=== PATIENT | male | born 1980 | race Caucasian/White ===

== ENCOUNTER 2022-11-25 01:41 | Day surgery (SDC) | payer OTHER, SELFPAY ==
[2022-11-11 13:44] VITALS: BMI 37.3
[2022-11-25 06:53] VITALS: BP 132/91; PULSE 64; RESP 20; TEMP 36.6; O2SAT 100; BMI 37.8
[2022-11-25] MEDS: LACTATED RINGERS 1,000 ML 150 ML IV CONT (07:07)
--- NOTE | 2022-11-25 07:29 | PM.HPGS ---
History of Present Illness History of Present Illness Consent: Risks, benefits, and alternatives have been discussed and questions answered. Patient agrees to proceed with procedure. Chief complaint: family hx colon ca, hx colon polyps Narrative: Walt Freitas is a 42 year old male Presents for screening colonoscopy. Patient's sister was found to have colon cancer. Patient has had 2 previous colonoscopies elsewhere. He was found to have colon polyps on 1 of those previous exams. Patient reports his current weight appetite and bowel movements are normal. Patient denies abdominal pain. He has had no bleeding. Family history is noncontributory. Review of Systems Review of Systems: Review of systems is noncontributory. [facility] Social History Social History Smoking packs per day: 1 Smoking cigarettes per day: 20.0 Years smoked: 10 Smoking pack-years: 10.00 Smoking status: Former smoker Tobacco type: cigarettes Spiritual care concerns: No Meds Home Medications and Allergies Home Medications Medication Instructions Recorded Confirmed Type cholecalciferol (vitamin D3) 50 50 mcg PO DAILY 11/11/22 11/11/22 History mcg (2,000 unit) tablet citalopram 40 mg tablet 40 mg PO DAILY 11/11/22 11/11/22 History gabapentin 300 mg capsule 300 mg PO TID 11/11/22 11/11/22 History hydrochlorothiazide 25 mg tablet 25 mg PO DAILY 11/11/22 11/11/22 History Allergies Allergy/AdvReac Type Severity Reaction Status Date / Time No Known Allergies Allergy Verified 11/11/22 13:42 Vital Signs Vital Signs - 24 hr 11/25/22 06:53 Temperature 97.8 F Pulse Rate 64 Respiratory Rate 20 Blood Pressure 132/91 H Pulse Oximetry 100 Oxygen Delivery Room Air Exam Narrative: physical exam reveals patient to be of alert. Vital signs stable. HEENT exam is unremarkable. Patient is anicteric. Lungs are clear to auscultation and percussion. Heart is without murmur or extra sounds. Abdomen bowel sounds are present soft nontender with no organomegaly. Digital external rectal exam is normal. Assessment and Plan Assessment and plan (1) Encounter for screening colonoscopy: Code(s): Z12.11 - Encounter for screening for malignant neoplasm of colon Status: Acute Assessment and Plan: Patient presents for screening colonoscopy. He does have a prior history of colon polyps. Further recommendations may be given after endoscopy. Check up follow-up at 5 year intervals is advised. (2) Family hx of colon cancer: Code(s): Z80.0 - Family history of malignant neoplasm of digestive organs Status: Acute Assessment and Plan: Patient's sister was diagnosed with colon cancer. For this reason surveillance colonoscopy at 5 year intervals advised.
--- NOTE | 2022-11-25 07:30 | WPDANESEPPF ---
Anes - Initial Pre Proc Eval Procedure: Operation Date: 11/25/22 08:00 Proposed Procedures p Screening Colonoscopy - Arturo Mcginnis MD Date/Time: 11/25/22 07:30 Surgeon: Arturo Mcginnis MD Pre Op Diagnosis: family hx colon ca, hx colon polyps Patient Data Age: 42 Gender: M Height: 1.78 m Weight: 119.5 kg Last Vital Signs Temp 97.8 F 11/25/22 06:53 Pulse 64 11/25/22 06:53 Resp 20 11/25/22 06:53 BP 132/91 H 11/25/22 06:53 Pulse Ox 100 11/25/22 06:53 O2 Del Method Room Air 11/25/22 06:53 Allergies Allergy/AdvReac Type Severity Reaction Status Date / Time No Known Allergies Allergy Verified 11/11/22 13:42 Home Medications Medication Instructions Recorded Confirmed Type cholecalciferol (vitamin D3) 50 50 mcg PO DAILY 11/11/22 11/11/22 History mcg (2,000 unit) tablet citalopram 40 mg tablet 40 mg PO DAILY 11/11/22 11/11/22 History gabapentin 300 mg capsule 300 mg PO TID 11/11/22 11/11/22 History hydrochlorothiazide 25 mg tablet 25 mg PO DAILY 11/11/22 11/11/22 History Patient hx anesthesia problems: none Family hx anesthesia problems: none Results Review: All pre-operative results and documents have been reviewed as part of the pre-operative evaluation. PENDING SALE TO [facility] Social History Social History Smoking packs per day: 1 Smoking cigarettes per day: 20.0 Years smoked: 10 Smoking pack-years: 10.00 Smoking status: Former smoker Tobacco type: cigarettes Spiritual care concerns: No Anes - Eval Final PreProcedure Day of Procedure 11/25/22 07:30 Patient weight: obese Heart: regular rate and rhythm Lungs: clear to auscultation Airway: Mallampati scale class II Neurological: alert and oriented Last oral intake: >/= 8 hours ASA classification: III Emergent: no Anesthetic plan: proceed Anesthesia type and monitoring: general GIVS and standard monitoring Results Review: All pre-operative results and documents have been reviewed as part of the pre-operative evaluation. Informed Consent: The patient's anesthetic plan and its attendant risks and benefits were discussed with the patient/family/POA. Questions were solicited and answers provided to the satisfaction of the patient/family/POA.
[2022-11-25 08:27] VITALS: BP 119/73; PULSE 66; RESP 17; O2SAT 100
[2022-11-25 08:37] VITALS: BP 123/73; PULSE 67; RESP 16; O2SAT 100
[2022-11-25 08:47] VITALS: BP 131/87; PULSE 70; RESP 16; O2SAT 100
== END 2022-11-25 08:59 | disposition home or self-care (01) ==
PROVIDERS: PCP Internal Medicine Infectious Disease; Visit Provider Internal Medicine Gastroenterology
PROC: 0DJD8ZZ Inspection of Lower Intestinal Tract, Via Natural or Artificial Opening Endoscopic (ICD-10-PCS; CPT 45378; principal; 2022-11-25 08:00)
DX: Z12.11 Encounter for screening for malignant neoplasm of colon (principal); K64.8 Other hemorrhoids; Z86.010 Personal history of colon polyps; Z80.0 Family history of malignant neoplasm of digestive organs; Z87.891 Personal history of nicotine dependence; E66.9 Obesity, unspecified; Z68.37 Body mass index [BMI] 37.0-37.9, adult
CPT/HCPCS: 45378; J2704; J7120

== ENCOUNTER 2024-12-05 10:14 | Outpatient (CLI) | payer OTHER, SELFPAY ==
--- OUTSIDE RECORDS SUMMARY | 2024-12-05 11:06 | XMS_ITS | Encounter Summary ---
Author Organization [facility] Address [address] [place] [address] Care Team Providers Care Nicking Machine Operator Name Role Phone Boni Tripathi MD Primary Care Provider Reason for Visit * Reason Comments MEDICATION REFILL Encounter Details Date Type Department Care Team (Late st Contact Info) Description 05/08/2024 Refill [facility] [address] [place] [address] Yandel Hampton MD [address] [place] [address] MEDICATION REFILL Social History Tobacco Use Types Packs/Day Years Used Date Smoking Tobacco: Former Cigarettes Q uit: 11/09/2015 Smokeless Tobacco: Never Alcohol Use Standard Drinks/Week Comments No 0 (1 standard drink = 0.6 oz pure alcohol) quit 8 months ago as of 06/28/16 AUDIT-C Answer Date Recorded Q1: How often do you have a drink containing alcohol? Never 04/24/2024 Q2: How many drinks containi ng alcohol do you have on a typical day when you are drinking? Patient does not drink Q3: How often do you have si x or more drinks on one occasion? Never 04/24/2024 Overall Financial Resource Strain (CARDIA) Answe r Date Recorded How hard is it for you to pa y for the very basics like food, housing, medical care, and heating? Not hard at all 04/24/2024 [facility] [place] [facility] - Occupational Stress Questionnaire Answer Date Recorded Do you feel stress - tense, restless, nervous, or anxious, or unable to sleep at night because your mind is troubled all the time - these days? Not at all 04/24/2024 Hunger Vital Sign Answer Date Recorded Within the past 12 months, y ou worried that your food would run out before you got the money to buy more. Never true 04/24/20 24 Within the past 12 months, t he food you bought just didn't last and you didn't have money to get more. Never true 04/24/2024 PRAPARE - Transportation Answer Date Re corded In the past 12 months, has l ack of transportation kept you from medical appointments or from getting medications? No 02/2024 In the past 12 months, has l ack of transportation kept you from meetings, work, or from getting things needed for daily living? No 04/24/2024 Housing Stability Vital Sign Answer Mikey e Recorded In the last 12 months, was t here a time when you were not able to pay the mortgage or rent on time? No 04/24/2024 In the last 12 months, how many places have you lived? 1 04/24/2024 In the last 12 months, was t here a time when you did not have a steady place to sleep or slept in a senior care (including now)? No 04/24/2024 Sex and Gender Information Value Date Recorded Sex Assigned at Not on file Legal Sex Male 5:37 AM [employer] Gender Identity Not on file Sexual Orientation Not on file documented as of this encounter Functional Status * Is person deaf or have serious hearing difficulty? Answer Date of Assessment Author No 04/24/2024 11:06 PM Quiana Vaz RN * Is person blind or have serious difficulty seeing? Answer Date of Assessment Author No 04/24/2024 11:06 PM Quiana Vaz RN * Does person have serious difficulty walking/climbing stairs? Answer Date of Assessment Author No 04/24/2024 11:06 PM Quiana Vaz RN * Does person have difficulty dressing/bathing? Answer Date of Assessment Author No 04/24/2024 11:06 PM Quiana Vaz RN * Does person have difficulty doing errands alone? Answer Date of Assessment Author No 04/24/2024 11:06 PM CDT Quiana Torres RN documented as of this encounter Mental Status * Does person have difficulty concentrating/remembering/making decisions? Answer Entry Date Author No 04/24/2024 11:06 PM CDT Quiana Torres RN documented in this encounter Plan of Treatment Upcoming Encounters Date Type Department Care Team (Late st Contact Info) Description 12/20/2024 1:30 PM CDT Appointment [facility] [address] [place] [phone] 01/03/2025 1:30 PM CDT Appointment [facility] [address] [place] [phone] 01/30/2025 12:30 PM CDT Appointment [facility] [address] [place] [address], [address] [place] [address] 01/30/2025 1:00 PM CDT Office Visit [facility] - Hematology/Oncology [address] [place] [phone] [place] [address] [place] [phone] documented as of this encounter Goals Goal Patient Goal Type Associated Problems Recent Progress Patient-Stated? Author Improve Home Support System General On track(03/14/20 12:02 PM CDT) No [place] RN documented as of this encounter Visit Diagnoses Diagnosis Abdominal pain, left lower quadrant Intra-abdominal infection Unspecified infectious and parasitic diseases documented in this encounter Additional Health Concerns Infection Onset Date Last Indicated Resolved Time ESBL GNR 04/21/2024 04/21/2024 MDRO 04/21/2024 04/21/2024 documented as of this encounter Care Teams Nicking Machine Operator Relationship Specialty Start Date End Date Boni Tripathi MD [address] [place], [place] [id number] PCP - General Internal Medicine 03/29/16 documented as of this encounter
--- OUTSIDE RECORDS SUMMARY | 2024-12-05 11:06 | XMS_ITS | CONTINUITY OF CARE DOCUMENT ---
Author Name hugo arias Address Unknown Organization [facility] Address [address] [facility] [address] [place] [address] Phone [phone] Care Team Providers Care Proteomics Scientist Name Role Phone Toshia Pacheco MD Unavailable RICARDO FLEMING MD Unavailable [phone] RICARDO FLEMING MD Unavailable [phone] PROBLEMS Condition Status Date Provider Notes HTN active Toshia Pacheco MD Morbid obesity active Toshia Pacheco MD 52. 37 BMI Chest pain-type to be determined active Demetra Pacheco MD Palpitations active Toshia Pacheco MD Tobacco use, quit active Toshia Pacheco MD Cough active Toshia Pacheco MD ENCOUNTERS Date Type Provider Location Encounter Diag nosis - In-person encounter Office Visit Toshia Pacheco MD [facility] Office Cough - In-person encounter Office Visit Toshia Pacheco MD [facility] - In-person encounter Office Visit Toshia Pacheco MD [facility] HTNMorbid obesityChest pain-type to be determinedPalpitationsTobacco use, quit VITAL SIGNS Date Observation Value Provider Body Mass Index (Ratio) 48.64 kg/m2 Jase Pacheco MD blood pressure, diastolic 80 mm[Hg] Min Canas blood pressure, systolic 120 mm[Hg] Cinthya Canas oxygen saturation, oximetry 98 % Asha Canas respiratory rate E&M 16 /min Asha Canas pulse rate 86 /min Asha Canas weight E&M 339 [lb_av] Asha Canas blood pressure, cuff size regular Min Canas height E&M 70 [in_i] Asha Canas blood pressure, diastolic 97 mm[Hg] Sita Sanchez blood pressure, systolic 144 mm[Hg] Bailey Sanchez pulse rate 73 /min Lindsay gambino oxygen saturation, oximetry 96 % Lindsay Sanchez respiratory rate E&M 18 /min Khalif Sanchez Body Mass Index (Ratio) 52.60 kg/m2 Darlin Sanchez weight E&M 366.6 [lb_av] Lindsay chinchillaon blood pressure, diastolic 92 mm[Hg] Amador artichester Julius blood pressure, systolic 147 mm[Hg] Annie Madrid pulse rate 76 /min Roz connelly oxygen saturation, oximetry 98 % Roz Madrid respiratory rate E&M 16 /min Roz lynn Body Mass Index (Ratio) 52.37 kg/m2 Sam Madrid weight E&M 365 [lb_av] Roz raier height E&M 70 [in_i] Roz connelly ALLERGIES No Known Drug Allergies HISTORY OF MEDICATION USE Medication Status Instructions Dates Provider Indications Com ments ROBITUSSIN COUGH+CHEST SHILO DM 5-100 MG/5ML ORAL LIQUID active take 5mL three times daily Toshia Pacheco MD [facility] MELATONIN 5 MG ORAL TABLET active take one pill as needed Roz Madrid ALPRAZOLAM 0.5 MG ORAL TABLET completed take one pill a day - Lindsay Sanchez METOPROLOL SUCCINATE ER 100 MG ORAL TABLET EXTENDED RELEASE 24 HOUR active take one pill twice a day Roz Madrid AMLODIPINE BESYLATE 10 MG ORAL TABLET active ONE TAB. DAILY Debbie Ventimiglia [employer]ILER NICODERM CQ PATCH 24 HOUR active change every 24 hours Roz Madrid SOCIAL HISTORY Date Observation Value Provider smoking status Former smoker Toshia langston MD social history E&M S moking History: P ioana is a former smoker. Toshia Pacheco MD social history reviewed E&M revi ewed - no changes required Toshia Pacheco MD number of grandchildren Toshia Canas alcohol use, average drinks per day social Asha Canas alcohol use yes Asha Floresita number of years as a smoker 10 a Asha Ricciby smoking history, tot al pack/day 1 Asha Stanfield cigarette use yes Asha Stanfield social history reviewed E&M revi ewed - no changes required Toshia Pacheco MD alcohol use, average drinks per day social LindsayGwendolyn Gloriaenson alcohol use yes Lindsay Maravilla nson number of years as a smoker 10 a Lindsay Sanchez smoking history, tot al pack/day 1 Lindsay Gloriaenson cigarette use yes Lindsay Gloria enson smoking status Former smoker Lindsay St wray social history E&M Smoking Histo ry: Jazlyn triplett is a former smoker. Toshia Pacheco MD social history reviewed E&M revi ewed - no changes required Toshia Pacheco MD alcohol use, average drinks per day social Roz Madrid alcohol use yes Roz Pacheco lder number of years as a smoker 10 a Roz Madrid smoking history, tot al pack/day 1 Roz [place] cigarette use yes Roz sams smoking status Former smoker Roz Ryan nfelder FAMILY HISTORY Family Member Condition Father Family History of Di abetes: Father Negative FH of Coron lawrence Artery Disease Mother Negative FH of Coron lawrence Artery Disease INSURANCE PROVIDERS Payer name Policy type / Coverage type Gerhard red alliance party ID [id number] insurance [employer] [id number] TREATMENT PLAN Date Name Performer Cardiology Toshia Owen Cardiology:He manage d to lose weight and has been seen by weight loss clinic. The plans are for him to have bariatric surgery at the end of the year or begining of next year. Toshia Pacheco MD Cardiology:No recurrence. Suki Pacheco MD Cardiology:He has a cough with sputum production. He will take Robitussin 5mL three times daily. Toshia Pacheco MD Cardiology:Blood pre ssure control is satisfactory. Toshia Pacheco MD Cardiology:Minimal s ymptoms. Likely that he is having occasional PAC which he is sensitive to. He will continue on Metoprolol Succinate 100mg twice daily. Toshia Pacheco MD Cardiology Debbie castanon [facility] Cardiology:Had stres s test which was normal and Echo shows EF of 65% H is updated medication list for this problem includes: Metoprolol Succinate Er 100 Mg Oral [id number] (Metoprolol succinate) ..... Take one pill twice a day Amlodipine Besylate 10 Mg Tabs (Amlodipine besylate) ..... One tab. daily Debbie King [facility] Cardiology: H is updated medication list for this problem includes: Metoprolol Succinate Er 100 Mg Oral [id number] (Metoprolol succinate) ..... Take one pill twice a day Amlodipine Besylate 10 Mg Tabs (Amlodipine besylate) ..... One tab. daily Debbie Ventimiglia [employer] Cardiology: H is updated medication list for this problem includes: Metoprolol Succinate Er 100 Mg Oral [id number] (Metoprolol succinate) ..... Take one pill twice a day Amlodipine Besylate 10 Mg Tabs (Amlodipine besylate) ..... One tab. daily Debbie Ventimiglia [employer] Date Name Sleep Study Home STR - Nuclear Complete Echo HISTORY OF PROCEDURES Procedure Date Procedure Name Provider Procedure Notes S tatus SNOMED-CT: 57523111 Physical Exam, Performed: Pulse Exam of Foot Toshia Pacheco MD completed EKG Toshia Pacheco MD complet ed SNOMED-CT: 193771067 254137 Current Medications Documented Toshia Pacheco MD completed SNOMED-CT: 048138265 Smoking Cessation Counseling Toshia Pacheco MD completed SNOMED-CT: 65719789 Physical Exam, Performed: Pulse Exam of Foot Toshia Pacheco MD completed EKG Toshia Pacheco MD complet ed SNOMED-CT: 292524606 082803 Current Medications Documented Toshia Pacheco MD completed Stress EKG Toshia Pacheco MD complet ed Cardiolite, 2 units Toshia Pacheco MD completed SPECT Images Toshia Pacheco MD compl eted SNOMED-CT: 59687462 Physical Exam, Performed: Pulse Exam of Foot Toshia Pacheco MD completed SNOMED-CT: 958660383 Smoking Cessation Counseling Toshia Pacheco MD completed SNOMED-CT: 932916059 632296 Current Medications Documented Toshia Pacheco MD completed EKG Toshia Pacheco MD complet ed
--- OUTSIDE RECORDS SUMMARY | 2024-12-05 11:06 | XMS_ITS | Clinical Summary ---
Author Organization [facility] Address [address] [place] [address] Phone Care Team Providers Care Content Publisher Name Role Phone Boni Tripathi MD Primary Care Provider Allergies No known active allergies Medications traMADol (ULTRAM) 50 mg tablet Take 100 mg by mouth every 6 hours as needed for Pain. Active disulfiram (ANTABUSE) 250 mg Tablet Take 500 mg by mouth daily. Active citalopram (CeleXA) 20 mg tablet Take 20 mg by mouth daily at bedtime. Active multivitamin (DAILY-MANASA) tablet Take 1 Tablet by mouth daily. Active calcium as carbonate (CHILDREN'S PEPTO) 400 mg (160 mg elemental) Tablet, Chewable Take by mouth. Active gabapentin (NEURONTIN) 300 mg capsule Take 300 mg by mouth. Active melatonin 5 mg Tablet, Rapid Dissolve Take 15 mg by mouth. Active Active Problems Problem Noted Date Diagnosed Date Asthma 04/12/2019 Back pain 04/12/2019 L4-L5 disc bulge 04/12/2019 Family history of malignant neoplasm of colon in first degree relative diagnosed when younger than 60 years of age 0904/12/2019 Family history of May syndrome 04/12/2019 Genetic testing 04/12/2019 Morbid obesity due to excess calories 12/07/2018 Family History Medical History Relation Name Comments Diabetes Father Heart Disease Maternal Grandfather Diabetes Maternal Grandmother Diabetes Mother Madeline Heart Disease Mother Madeline High Cholesterol Mother Madeline Cancer Paternal Grandmother Cancer unknown primary Colon Cancer Sister 1 May syndrome P MS 2+ Other Sister 2 Has May syndr ome P MS 2+ Relation Name Status Comments Father Maternal Aunt 1 Maternal Aunt 2 Alive Maternal Aunt 3 Alive Maternal Aunt 4 Alive Maternal Aunt 5 Alive Maternal Aunt 6 Alive Maternal Aunt 7 Alive Maternal Aunt 8 Alive Maternal Grandfather Maternal Grandmother Maternal Uncle 1 Alive Maternal Uncle 2 Alive Maternal Uncle 3 Alive Mother Madeline Alive Paternal Grandfather Paternal Grandmother Sister 1 Alive Sister 2 Alive Social History Tobacco Use Types Packs/Day Years Used Date Smoking Tobacco: Former Cigarettes Q uit: 10/18/2015 Alcohol Use Standard Drinks/Week Comments Not Currently 0 (1 standard drink = 0.6 oz pur e alcohol) Sex and Gender Information Value Date Recorded Sex Assigned at Not on file Legal Sex Male 11:24 AM CDT Gender Identity Not on file Sexual Orientation Not on file Last Filed Vital Signs Vital Sign Reading Time Taken Comments Blood Pressure 124/88 04/12/2019 8:54 AM CDT Pulse 99 04/12/2019 8:54 AM CDT Temperature 37 C (98.6 F) 04/12/2019 8:54 AM CDT Respiratory Rate 16 04/12/2019 8:54 AM CDT Oxygen Saturation - - Inhaled Oxygen Concentration - - Weight 96.2 kg (212 lb) 04/12/2019 8:54 AM CDT Height 175.3 cm (5' 9) 04/12/2019 8:54 AM CDT Body Mass Index 31.31 04/12/2019 8:54 AM CDT Plan of Treatment Health Maintenance Due Date Last Done Comments Pre-Diabetes and Diabetes Screening 1981 DTAP/TDAP/TD VACCINES (1 - Tdap) 02/24/2000 HEPATITIS B VACCINES (1 of 3 - 19+ 3-dose series) 02/24/2000 INFLUENZA VACCINE (#1) 2024 HPV VACCINES Aged Out No longer eligi ble based on patient's age to complete this topic Insurance [employer] BLUE ACCESS/TRUE BLUE PPO Care Teams Content Publisher Relationship Specialty Start Date End Date Boni Tripathi MD [address] [place] [address] PCP - General Internal Medicine 04/12/19
--- OUTSIDE RECORDS SUMMARY | 2024-12-05 11:06 | XMS_ITS | Clinical Summary ---
Author Organization [facility] Address [address] [address] Care Team Providers Care Supervisor Edging Name Role Phone Boni Tripathi MD Primary Care Provider Source Comments [facility],non-owned Affiliates and Associated Physician Practices is amultiple site organization consisting of ambulatory clinics and hospital sitesin [place], [place], [place] and [place]. This disclosure is being madepursuant to the Care Everywhere program and may not contain all information available regarding this patient. Last updated 18.[facility] Allergies Active Allergy Reactions Criticality Noted Date Comments Amoxicillin Urticaria,Itching Medium 08/31/2024 Medications * Be aware that medications may not be up to date on this document. Alwaysverify current medications with the patient. citalopram (CeleXA) 40 MG tabletIndicati ons:Major Depressive Disorder Take 1 (one) tablet by mouth once daily Reasons: Major Depressive Disorder Active acetaminophen (Tylenol) 500 MG tablet Take 2 (two) tablets by mouth 3 times daily as needed for Fever or Pain Maximum allowable Acetaminophen amount = 4 Grams (4000 mg) / 24 hours. 45 tablet 05/03/2024 11:51 AM CDT 05/03/20 24 Active gabapentin (Neurontin) 300 MG capsule Take 1 (one) capsule by mouth 3 times daily as needed 90 capsule 05/03/20 24 Active vitamin D, ergocalciferol , (Drisdol) 1.25 MG (47737 UT) capsule Take 1 (one) capsule by mouth every 7 days 09/13/19 25 Active eszopiclone (Lunesta) 3 MG tablet Take 1 (one) tablet by mouth once 10/09/19 25 Active cloNIDine (Catapres) 0.2 MG tablet Take 1 (one) tablet by mouth at bedtime 09/12/19 25 Active folic acid (Folvite) 1 MG tabletIndicati ons:Other iron deficiency anemia Take 1 (one) tablet by mouth once daily 90 tablet 2 11/20/19 25 Active omeprazole (PriLOSEC) 20 MG capsule Take 1 (one) capsule by mouth once daily 30 capsule 02/12/20 24 024 Discontin ued(Yes Pharm/AVS ) folic acid (Folvite) 1 MG tablet Take 1 (one) tablet by mouth once daily 60 tablet 1 11/03/19 25 025 Discontin ued(Reord er) Active Problems Problem Noted Date Diagnosed Date B12 deficiency 11/02/2024 Iron deficiency anemia 11/02/2024 SBO (small bowel obstruction) 05/15/2024 History of abdominal surgery 05/15/2024 Anasarca 04/26/2024 Abdominal pain, right lower quadrant 04/23/2024 Abdominal pain, left lower quadrant 04/23/2024 LLQ abdominal pain 04/23/2024 LLQ pain 04/23/2024 Intra-abdominal infection 04/23/2024 Hypokalemia 04/18/2024 Leukocytosis, unspecified type 04/18/2024 Duodenal perforation 04/18/2024 Right sided abdominal pain 04/18/2024 Intraabdominal fluid collection 04/18/2024 Abdominal fluid collection 03/30/2024 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 RLQ abdominal pain 03/13/2024 Post-operative pain 03/13/2024 Elevated lipase 03/13/2024 S/P jejunostomy 02/15/2024 S/P gastrostomy 02/15/2024 Leakage from duodenostomy 02/15/2024 Retroperitoneal hematoma 02/15/2024 Abdominal wall hematoma 02/15/2024 Other specified anemias 02/15/2024 Abdominal pain, generalized 02/07/2024 Hemoperitoneum 02/07/2024 Perforated duodenal ulcer 02/04/2024 L4-L5 disc bulge 04/12/2019 Family history of May syndrome 04/12/2019 Family history of malignant neoplasm of colon in first degree relative diagnosed when younger than 60 years of age 0904/12/2019 Asthma 04/12/2019 Morbid obesity due to excess calories 12/07/2018 Lumbar radiculopathy 05/31/2017 Personal history of nicotine dependence 04/30/20 HTN (hypertension) 04/30/2015 Encounters Date Type Department Care Team Description 11/30/2024 10:13 AM CDT - 11/30/2024 11:59 PM CDT Hospital Encounter [facility] [address] [place] [phone] Albino Martinez MD Discharge Disposition: Home or Self Care 11/19/2024 Refill [facility] - Hematology/Oncology [address] [place] [phone] Albino Martinez MD MEDICATION REFILL 11/16/2024 9:36 AM CDT - 11/16/2024 11:59 PM CDT Hospital Encounter [facility] [address] [place] [phone] Albino Martinez MD Hematology Discharge Disposition: Home or Self Care 11/16/2024 Orders Only [facility] [address] [place] [address] Albino Martinez MD 11/13/2024 Telephone [facility] - Hematology/Oncology [address] [place] [phone] Melinda Dumont, BEATA Future Appointment 11/02/2024 12:45 PM CDT - 11/02/2024 11:59 PM CDT Hospital Encounter [facility] [address] [place] [address], [address] [place] [address] Discharge Disposition: Home or Self Care 11/02/2024 11:40 AM CDT Office Visit [facility] - Hematology/Oncology [address] [place] [phone] Albino Martinez MD Other iron deficiency anemia (Primary Dx); Vitamin B12 deficiency; Family history of colon cancer 11/02/2024 Travel 10/10/2024 1:00 PM CDT Office Visit [facility] - Infectious Disease [address] [facility], [facility] [place] [address] Ted Magdaleno MD Abdominal actinomycosis (Primary Dx); Intra-abdominal infection 10/10/2024 Travel from Last 3 Months Immunizations Immunization Administration Dates Next Due COVID PFIZER BIVALENT 12Y+ 30mcg/0.3ML 06/09/2022 Covid Pfizer primary Monoval ent 12+ yr 0.3ml 09/08/2021 Covid Pfizer primary monoval ent 12+ yr 0.3mL Purple cap 03/21/2021,02/28/2021 FLU VACCINE TRI IIV3 SPLIT I M (FLUVIRIN) 05/02/2014 INFLUENZA VACCINE, HIGH-DOSE , TRIV. (FLUZONE HIGH-DOSE TRIVALENT; 65Y+) (HD-IIV3) 05/18/2015 INFLUENZA VACCINE, QUADR. (A FLURIA, FLUZONE QUADRIVALENT; 6MO+) (IIV4) 06/07/2022,04/06/2021,05/14/2019,2016,05/05/2016 INFLUENZA VACCINE, QUADR. (F LUZONE; FLULAVAL; FLUARIX; AFLURIA QUADRIVALENT; 6MO+), 0.5 ML (IIV4) 04/11/2018 INFLUENZA VACCINE, TRIV. (FL UZONE; FLULAVAL; FLUARIX; AFLURIA TRIVALENT; 6MO+), 0.5 ML (IIV3) 04/27/2024 TDAP, HISTORIC VACCINE 06/09/2015,07/18/2004 Social History Tobacco Use Types Packs/Day Years Used Date Smoking Tobacco: Former Cigarettes Q uit: 11/09/2015 Smokeless Tobacco: Never Tobacco Cessation:Counseling Given: Not Answered Alcohol Use Standard Drinks/Week Comments No 0 [...] and heating? Not hard at all 04/24/2024 [facility] [place] [facility] Occupat ional Health - Occupational Stress [...] place to sleep or slept in a fci (including now)? No 04/24/2024 Sex and Gender Information Value Date Recorded Sex Assigned at Not on file Legal Sex Male 5:37 AM TEAR DOWN MAN Gender Identity Not on file Sexual Orientation Not on file Last Filed Vital Signs Vital Sign Reading Time Taken Comments Blood Pressure 139/97 11/30/2024 10:26 AM CDT Pulse 72 11/30/2024 10:26 AM CDT Temperature 36.3 C (97.3 F) 11/30/2024 10:26 AM CDT Respiratory Rate 18 11/30/2024 10:2 6 AM CDT Oxygen Saturation 100% 11/30/2024 10: 26 AM CDT Inhaled Oxygen Concentration - - Weight 112.2 kg (247 lb 6.4 oz) 025 10:26 AM CDT Height 178 cm (5' 10.08) 11/02/2024 11 :40 AM CDT Body Mass Index 35.42 11/02/2024 11:40 AM CDT Plan of Treatment Upcoming Encounters Date Type Department Care Team (Late st Contact Info) Description 12/20/2024 1:30 PM CDT Appointment [facility] [address] [place] [phone] 01/03/2025 1:30 PM CDT Appointment [facility] [address] [place] [phone] 01/30/2025 12:30 PM CDT Appointment [facility] [address] [place] [address], [address] [place] [address] 01/30/2025 1:00 PM CDT Office Visit [facility] - Hematology/Oncology [address] [place] [phone] Albino Martinez MD [address] [place] [phone] Health Maintenance Due Date Last Done Comments HIV SCREENING 02/24/1996 HEPATITIS C SCREENING 02/19/1999 HEPATITIS B VACCINE (1 of 3 - 19+ 3-dose series) 02/24/2000 PNEUMOCOCCAL VACCINE (1 of 2 - PCV) 02/24/2000 COVID-19 VACCINE ( season) 2024 06/09/2022, 09/08/2021, 03/21/2021, Additional history exists DEPRESSION SCREENING 07/18/2024 DTAP/TDAP/TD VACCINES (3 - Td or Tdap) 06/09/2025 06/09/2015, 07/18/2004 SCREENING FOR DIABETES 05/18/2027 , 05/17/2024, 05/16/2024, Additional history exists LIPID TESTING 03/31/2029 03/31/2024, 12/07/2018 ZOSTER VACCINE (1 of 2) 2031 INFLUENZA VACCINE Completed 04/27/2024, , 04/06/2021, Additional history exists HIB VACCINE Aged Out No longer eligi ble based on patient's age to complete this topic HPV VACCINE Aged Out No longer eligi ble based on patient's age to complete this topic MENINGOCOCCAL (Group B) VACCINE SHARED DECISION-MAKING Aged Out No longer eligible based on patient's age to complete this topic MENINGOCOCCAL GROUPS A/C/Y/W VACCINE Aged Out No longer eligible based on patient's age to complete this topic Goals Goal Patient Goal Type Associated Problems Recent Progress Patient-Stated? Author [facility] Home Support System General On track(03/14/20 12:02 PM CDT) Sierra Dangelo RN Procedures Procedure Name Priority Date/Time Associated Diagnosis Comments FERRITIN Routine 11/16/2024 10:03 AM CDT Other iron deficiency anemia IRON + TRANSFERRIN PANEL Routine 11/16/2024 10:03 AM CDT Other iron deficiency anemia FOLATE Routine 11/16/2024 10:03 AM CDT Other iron deficiency anemia VITAMIN B12 Routine 11/16/2024 10:03 AM CDT Other iron deficiency anemia RETIC COUNT Routine 11/16/2024 10:03 AM CDT Other iron deficiency anemia CBC W AUTO DIFFERENTIAL Routine 11/16/2024 10:03 AM CDT Other iron deficiency anemia CBC W AUTO DIFFERENTIAL Routine 11/02/2024 12:53 PM CDT Other iron deficiency anemia RETIC COUNT Routine 11/02/2024 12:53 PM CDT Other iron deficiency anemia VITAMIN B12 Routine 11/02/2024 12:53 PM CDT Other iron deficiency anemia FOLATE Routine 11/02/2024 12:53 PM CDT Other iron deficiency anemia IRON + TRANSFERRIN PANEL Routine 11/02/2024 12:53 PM CDT Other iron deficiency anemia FERRITIN Routine 11/02/2024 12:53 PM CDT Other iron deficiency anemia BASIC METABOLIC PANEL (CALCIUM TOTAL) Routine 05/18/2024 4:10 AM CDT LIPID PROFILE Routine 03/31/2024 7:42 AM CDT from Last 3 Months or Most Recently Relevant to Health Maintenance Results * (ABNORMAL) RETIC COUNT (11/16/2024 10:03 AM CDT) Only the most recent of2 resultswithin the time period is included. Reticulocyte Percent 1.84 0.50 - 2.40 % 11/16/2024 10:39 AM CDT [facility] Reticulocyte Absolute 0.0797 0.0200 - 0.1100 x10E6/uL 11/16/2024 10:39 AM CDT [facility] Ret-HE 18.6(L) 29.0 - 37.9 pg 11/16/2024 10:39 AM CDT [facility] Immature Reticulocyte Fraction 22.2(H) 1.8 - 15.2 % 11/16/2024 10:39 AM T [facility] Blood BLOOD SPECIMEN / Unknown Venipuncture / Unknown 11/16/2024 10:03 AM CDT 11/16/2024 10:29 AM CDT us Albino Martinez MD LAB - HEMATOLOGY ORDERABLES Rosemarie garcia Result [address] [address], [facility] [phone] * (ABNORMAL) CBC WITH DIFFERENTIAL (11/16/2024 10:03 AM CDT) Only the most recent of2 resultswithin the time period is included. WBC 4.4 4.0 - 10.7 x10E9/L 11/16/2024 10:39 AM CDT [facility] RBC Count 4.33 4.30 - 5.80 x10E12/L 11/16/2024 10:39 AM [facility] Hemoglobin 9.5(L) 13.3 - 17.5 g/dL 11/16/2024 10:39 AM [facility] Hematocrit 32.9(L) 38.7 - 51.1 % 11/16/2024 10:39 AM [facility] MCV 76.0(L) 80.0 - 98.0 fL 11/16/2024 10:39 AM [facility] MCH 21.9(L) 26.7 - 33.6 pg 11/16/2024 10:39 AM [facility] MCHC 28.9(L) 31.7 - 36.3 g/dL 11/16/2024 10:39 AM [facility] RDW-CV 16.4(H) 11.3 - 14.8 % 11/16/2024 10:39 AM [facility] Platelet Count 270 150 - 420 x10E9/L 11/16/2024 10:39 AM [facility] MPV 10.7 7.8 - 11.4 fL 11/16/2024 10:39 AM [facility] Preliminary Absolute Neutrophil 2.61 1.60 - 7.50 x10E9/L 11/16/2024 10:39 AM [facility] Neutrophil % 59.8 41.0 - 74.0 % 11/16/2024 10:39 AM [facility] Lymphocyte % 22.4 17.0 - 47.0 % 11/16/2024 10:39 AM [facility] Monocyte % 13.5(H) 3.0 - 11.0 % 11/16/2024 10:39 AM [facility] Eosinophil % 3.2 0.0 - 7.0 % 11/16/2024 10:39 AM [facility] Basophil % 0.9 0.0 - 1.6 % 11/16/2024 10:39 AM [facility] Immature Granulocytes % 0.2 0.0 - 1.0 % 11/16/2024 10:39 AM [facility] Neutrophil Absolute 2.61 1.60 - 7.50 x10E9/L 11/16/2024 10:39 AM CDT [facility] Lymphocyte Absolute 0.98(L) 1.00 - 4.40 x10E9/L 11/16/2024 10:39 AM CDT [facility] Monocyte Absolute 0.59 0.15 - 1.00 x10E9/L 11/16/2024 10:39 AM CDT [facility] Eosinophil Absolute 0.14 0.00 - 0.60 x10E9/L 11/16/2024 10:39 AM CDT [facility] Basophil Absolute 0.04 0.00 - 0.13 x10E9/L 11/16/2024 10:39 AM T [facility] Blood BLOOD SPECIMEN / Unknown Venipuncture / Unknown 11/16/2024 10:03 AM CDT 11/16/2024 10:29 AM CDT us Albino Martinez MD LAB - HEMATOLOGY ORDERABLES Rosemarie l Result Performing Organization Address City/[facility]/ZIP Co de Phone Number [address] [address], [facility] [phone] * FOLATE (11/16/2024 10:03 AM CDT) Only the most recent of2 resultswithin the time period is included. Pathologist [facility] Folate 17.5 7.0 - 31.4 ng/mL 11/16/2024 11:43 AM CDT [facility] Blood BLOOD SPECIMEN / Unknown Venipuncture / Unknown 11/16/2024 10:03 AM CDT 11/16/2024 10:29 AM CDT us Albino Martinez MD LAB - CHEMISTRY ORDERABLES Final Result Performing Organization Address [facility]/ZIP Co de Phone Number [address] [address], [facility] [phone] * (ABNORMAL) VITAMIN B12 (11/16/2024 10:03 AM CDT) Only the most recent of2 resultswithin the time period is included. Vitamin B12 201(L) 213 - 816 pg/mL 11/16/2024 11:43 AM CDT [facility] Blood BLOOD SPECIMEN / Unknown Venipuncture / Unknown 11/16/2024 10:03 AM CDT 11/16/2024 10:29 AM CDT us Albino Martinez MD LAB - CHEMISTRY ORDERABLES Final Result Performing Organization Address City/[facility]/ZIP Co de Phone Number [facility] [address] [place] [address], [place] [phone] * (ABNORMAL) IRON + TRANSFERRIN PANEL (11/16/2024 10:03 AM CDT) Only the most recent of2 resultswithin the time period is included. Iron 19(L) 50 - 175 ug/dL 11/16/2024 11:17 AM CDT [facility] Transferrin 393(H) 174 - 382 mg/dL 11/16/2024 11:17 AM CDT [facility] Transferrin Saturation % 4(L) 16 - 50 % 11/16/2024 11:17 AM CDT [facility] TIBC Calculated 491(H) 240 - 450 ug/dL 11/16/2024 11:17 AM CDT [facility] Blood BLOOD SPECIMEN / Unknown Venipuncture / Unknown 11/16/2024 10:03 AM CDT 11/16/2024 10:12 AM CDT us Albino Martinez MD LAB - CHEMISTRY ORDERABLES Final Result Performing Organization Address City/[facility]/ZIP Co de Phone Number [facility] [address] [place] [phone], [place] [phone] * (ABNORMAL) FERRITIN (11/16/2024 10:03 AM CDT) Only the most recent of2 resultswithin the time period is included. Ferritin 7(L) 22 - 275 ng/mL 11/16/2024 11:27 AM CDT [facility] Blood BLOOD SPECIMEN / Unknown Venipuncture / Unknown 11/16/2024 10:03 AM CDT 11/16/2024 10:12 AM CDT us Albino Martinez MD LAB - CHEMISTRY ORDERABLES Final Result [facility] [address] [place] [phone], [facility] [phone] * (ABNORMAL) BASIC METABOLIC PANEL (CALCIUM TOTAL) (05/18/2024 4:10 AM CDT) BUN <5(L) 7 - 26 mg/dL 05/18/2024 5:47 AM [facility] Creatinine 0.45(L) 0.71 - 1.16 mg/dL 05/18/2024 5:47 AM [facility] Sodium 137 136 - 145 mmol/L 05/18/2024 5:47 AM [facility] Potassium 4.1 3.5 - 4.5 mmol/L 05/18/2024 5:47 AM [facility] Chloride 107 98 - 107 mmol/L 05/18/2024 5:47 AM [facility] CO2 24 22 - 29 mmol/L 05/18/2024 5:47 AM [facility] Glucose 96 70 - 99 mg/dL 05/18/2024 5:47 AM [facility] Calcium 8.0(L) 8.4 - 10.2 mg/dL 05/18/2024 5:47 AM [facility] Anion Gap 6 6 - 16 05/18/2024 5:47 AM [facility] BUN/Creatinine Ratio <11 7 - 23 05/18/2024 5:47 AM [facility] Osmolality Calculated <281 275 - 295 mOsm/kg 05/18/2024 5:47 AM [facility] eGFR by CKD-EPI >90 >=90 mL/min/1.7 3 m2 05/18/2024 5:47 AM [facility] Blood BLOOD SPECIMEN / Unknown Lab Venipuncture / Unknown 05/18/2024 4:10 AM CDT 05/18/2024 5:13 AM CDT us João Davalos MD LAB - CHEMISTRY ORDERABLES Final Result [facility] [address] [place] [address], [facility] [phone] * (ABNORMAL) LIPID PROFILE (03/31/2024 7:42 AM CDT) Cholesterol Total 114 <200 mg/dL 03/31/2024 8:59 AM CDT [facility] HDL 26(L) >40 mg/dL 03/31/2024 8:59 AM T [facility] Comment: ATP III Classification of HDL Cholesterol: <40 mg/dL: Considered a major risk factor. >60 mg/dL: Considered a negative risk factor. LDL Calculated 72 <100 mg/dL 03/31/2024 8:59 AM T [facility] Comment: ATP III Classification of LDL Cholesterol: <100 mg/dL: Optimal 100 - 129 mg/dL: Near Optimal/Above Optimal 130 - 159 mg/dL: Borderline High 160 - 189 mg/dL: High >190 mg/dL: Very High Triglycerides 81 <150 mg/dL 03/31/2024 8:59 AM T [facility] Comment: ATP III Classification of Triglycerides: <150 mg/dL: Normal 150 - 199 mg/dL: Borderline High 200 - 400 mg/dL: High >500 mg/dL: Very High Blood BLOOD SPECIMEN / Unknown Lab Venipuncture / Unknown 03/31/2024 7:42 AM CDT 03/31/2024 8:21 AM CDT Damir Sykes MD LAB - CHEMISTRY YANG MENDEZ Final Result [facility] [address] [place] [address], [facility] [phone] from Last 3 Months or Most Recently Relevant to Health Maintenance Additional Health Concerns Infection Onset Date Last Indicated ESBL GNR 04/21/2024 04/21/2024 MDRO 04/21/2024 04/21/2024 Insurance [employer] Advance Directives * Full Code (Latest Code Status on File) Date Activated Date Inactivated Comments 05/15/2024 2:17 AM 05/18/2024 8:09 PM * Full Code Date Activated Date Inactivated Comments 04/24/2024 5:26 AM 05/03/2024 2:10 PM * Full Code Date Activated Date Inactivated Comments 04/18/2024 7:51 AM 04/22/2024 4:29 PM * Full Code Date Activated Date Inactivated Comments 03/30/2024 2:14 PM 04/01/2024 12:42 PM * Full Code Date Activated Date Inactivated Comments 03/13/2024 3:02 AM 03/16/2024 6:47 PM Care Teams Supervisor Edging Relationship Specialty Start Date End Date Boni Tripathi MD [address], [place] [phone] PCP - General Internal Medicine 03/29/16
--- NOTE | 2024-12-25 09:18 | P.SLEEP_ITS ---
Sleep Study Date of Study: 12/05/24 Ordering Provider: ANIRUDH Swann Interpreting Physician: Muriel Hoffmann DO Sleep Study Type: Split Polysomnogram Height: 1.78 m Weight: 108.862 kg Body Mass Index: 34.4 Neck Circumference (inches): 15.5 [place]: 9 Reason for Sleep Study Previously diagnosed YOKO on CPAP. Lost a significant amount of weight and no longer needed CPAP. Regained 30 pounds and daytime hypersomnia re-appeared. Sleep History The patient is a 44-year-old male that had a sleep study ordered by the Pulmonary group for evaluation of sleep apnea. The patient rarely awakens from sleep short of breath. He denies awakening at night with heartburn, belching or cough. He constantly snores loudly enough that others complain. He denies having trouble sleeping when he has a cold. He denies waking up gasping for air throughout the night. He occasionally has breathing problems at night observed by himself or others. He denies sweating excessively at night. He denies having heart palpitations or irregular heartbeats during the night. He denies falling asleep during the day and while driving. He denies sleep paralysis, cataplexy and hypnagogic/ hypnopompic hallucinations. He occasionally has trouble at school or work due to sleepiness. He denies feeling afraid of going to sleep. He denies having nightmares. He rarely remembers his dreams. He rarely has thoughts racing through his mind. He denies feeling sad, depressed or anxious. He denies having muscular tension. He rarely notices parts of his body jerk. He rarely kicks during the night. He occasionally has crawling and aching feelings in his legs and occasionally has leg pain during the night. He occasionally grinds his teeth during sleep but never awakens with morning jaw pain. He is occasionally bothered by pain during the day but never awakened by pain during the night. He frequently wakes up feeling stiff in the morning. He frequently wakes up with sore or achy muscles. He frequently wakes up with pain in the neck, spine and other joints. He goes to bed at 11:00 p.m. on weekdays and at 1:00 a.m. on the weekends. It takes him 30 minutes to fall asleep. He wakes up 4 times throughout the night to urinate is able to fall back asleep within 5-10 minutes. He wakes up at 6:00 a.m. on weekdays and 8:00 a.m. on the weekends. He typically gets 6-7 hours of sleep per night. He does not stay in bed after waking up in the morning. He denies consuming any caffeinated beverages within 2 hours of bedtime. He denies engaging in physical exercise before bedtime. He will read before falling asleep. He denies watching television before falling asleep. He will take naps in the afternoon or the evening but they are not refreshing. He consumes 4 caffeinated sodas per day. He is a former smoker. He denies alcohol and recreational drug use. REPLACED BY [facility] Past Medical History Medical History Varicose veins of lower extremity Hypertension Depression Iron deficiency anemia Surgical History Surgical History History of bariatric surgery 2017 Social History Social History Smoking packs per day: 1 Smoking cigarettes per day: 20.0 Years smoked: 10 Smoking pack-years: 10.00 Smoking status: Former smoker Tobacco type: cigarettes Spiritual care concerns: No Medications Home Medications ?Medication ?Instructions ?Recorded ?Confirmed ?Type cholecalciferol (vitamin D3) 50 50 mcg PO DAILY 11/11/22 10/08/24 History mcg (2,000 unit) tablet citalopram 40 mg tablet 40 mg PO DAILY 11/11/22 10/08/24 History gabapentin 300 mg capsule 300 mg PO TID 11/11/22 10/08/24 History clonidine HCl 0.2 mg tablet 0.2 mg PO ONCE 10/08/24 10/08/24 History doxycycline hyclate 50 mg capsule 50 mg PO DAILY 10/08/24 10/08/24 History eszopiclone 3 mg tablet (Lunesta) 3 mg PO QHS #2 tabs 10/08/24 10/08/24 Rx Sleep Procedure A full night split study using the [employer] multi-channel system recorded the standard physiologic parameters including EEG, EOG, submentalis EMG, anterior tibialis EMG, EKG, body position, nasal and oral airflow using nasal pressure sensor and thermistor.? Respiratory parameters of chest and abdominal movements were recorded with Respiratory Inductance Plethysmography belts. Oxygen saturation was recorded by pulse oximetry. Video monitoring was also performed. Sleep stages, periodic limb movements, and EEG arousals were scored in 30 second epochs according to the criteria of the AASM Scoring Manual. The Apnea-Hypopnea Index was calculated using CMS guidelines for definition of hypopnea with 4% O2 desaturations while scoring respiratory events. Sleep Architecture During the diagnostic portion of the study, the total recording time was 158.3 minutes. The total sleep time was 135.0 minutes. Sleep latency was 3.8 minutes.? REM sleep was not achieved during this portion of the study. Sleep Efficiency was 85.3%. The patient had 12 awakenings for an awakening index of 5.3. Wake after sleep onset time was 19.5 minutes. The patient spent 9.0 minutes, 6.7% of total sleep time in Stage N1. The patient spent 93.0 minutes, 68.9% in Stage N2. The patient spent 33.0 minutes, 24.4% in Stage N3. The patient spent 0.0 minutes, 0.0% in Stage REM sleep. At 01:05:23 AM the patient was placed on PAP treatment and was titrated at pressures ranging from 5 cm H20 up to 9 cm H20. During the treatment portion of the study, the total recording time was 298.4 minutes.? The total sleep time was 267.5 minutes. Sleep latency was 1.0 minutes. REM latency was 7.5 minutes. Sleep Efficiency was 89.7%. Wake after Sleep Onset time was 30.0 minutes. The patient spent 24.0 minutes, 9.0% of total sleep time in Stage N1. The patient spent 172.5 minutes, 64.5% in Stage N2. The patient spent 8.5 minutes, 3.2% in Stage N3. The patient spent 62.5 minutes, 23.4% in Stage REM. Respiratory Analysis During the diagnostic portion of the study, the patient had 27 hypopneas for an overall Apnea Hypopnea Index of 12.0 events per hour. The REM Apnea Hypopnea Index was 0. The NREM Apnea Hypopnea Index was 12.0. The patient had a Central Apnea Hypopnea Index of 0. There was no evidence of Luigi-Malloy Respirations. During the treatment portion of the study, the patient had 2 hypopneas and 1 central apnea for an overall Apnea Hypopnea Index of 0.7 events per hour. The REM Apnea Hypopnea Index was 1.9. The NREM Apnea Hypopnea Index was 0.3. The patient had a Central Apnea Hypopnea Index of 0.2. There was no evidence of Luigi-Malloy Respirations. The patient was started on CPAP 5 cm H2O and titrated to CPAP 9 cm H2O due to hypopneas. The patient was able to fall asleep starting on CPAP 5 cm H2O. The patient was able to achieve REM sleep starting on CPAP 5 cm H2O. The patient was able to achieve a residual AHI less than 5 with both NREM and REM sleep in the supine position on both 5 cm and 7 cm. The patient was having respirator events in REM supine on 5 cm H2O so he was titrated to 7 cm H2O. On CPAP 7 cm H2O, the patient spent 67.5 minutes in NREM and 23 minutes in REM with 1 hypopnea, resulting in an AHI of 0.7. The patient had a sleep efficiency of 81.2% on this pressure setting. Arousals During the diagnostic portion of the study, there were a total of 23 arousals for an arousal index of 10.2.? There was 1 respiratory arousal for an index of 0.4. There was 1 periodic limb movement arousals for an index of 0.4.? There were 0 isolated limb movement arousals for an index of 0. There were 21 spontaneous arousals for an index of 9.3. During the treatment portion of the study, there were a total of 69 arousals for an index of 15.5.? There were 0 respiratory arousals for an index of 0. There were 14 periodic limb movement arousals for an index of 3.1.? There were 12 isolated limb movement arousals for an index of 2.7. There were 44 spontaneous arousals for an index of 9.9. Periodic Limb Movements During the diagnostic portion of the study, the patient had 2 isolated limb movements with an index of 0.9. The patient had 8 periodic limb movements with an index of 3.6. The patient had a total of 10 limb movements with a total limb movement index of 4.4. During the treatment portion of the study, the patient had 31 isolated limb movements with an index of 7.0. The patient had 38 periodic limb movements with an index of 8.5. The patient had a total of 69 limb movements with a total limb movement index of 15.5. Oximetry Data During the diagnostic portion of the study, the patient had an average oxygen saturation of 95.2% in wake with a minimum oxygen saturation of 84% and a maximum oxygen saturation of 99%. The patient had an average oxygen saturation of 91.9% in sleep with a minimum oxygen saturation of 84.0% and a maximum oxygen saturation of 98.0%. The patient had 31 oxygen desaturations resulting in an Oxygen Desaturation Index of 13.8. The patient spent 9.2 minutes, 6.2% of total sleep time with an oxygen saturation less than 88%. During the treatment portion of the study, the patient had an average oxygen saturation of 97.0% in wake with a minimum oxygen saturation of 93.0% and a maximum oxygen saturation of 99.0%. The patient had an average oxygen saturation of 96.0% in sleep with a minimum oxygen saturation of 89.0% and a maximum oxygen saturation of 99.0%. The patient had 7 oxygen desaturations resulting in an Oxygen Desaturation Index of 1.6. The patient spent 0 minutes of total sleep time with an oxygen saturation less than 88%. Snoring Profile Mild snoring was present intermittently during the baseline portion of the study. The snoring resolved once the patient was titrated to 7 cm H2O. Cardiac Profile The EKG lead showed normal sinus rhythm. No arrhythmias or premature beats were seen. During the diagnostic portion of the study, the average pulse rate was 71.0 bpm.? The minimum pulse rate was 56.0 bpm. The maximum pulse rate was 89.0 bpm. During the treatment portion of the study, the average pulse rate was 60.7 bpm.? The minimum pulse rate was 51.0 bpm. The maximum pulse rate was 83.0 bpm. EEG Profile No signs of seizure activity seen. Assessment and Plan Assessment and Plan (1) YOKO (obstructive sleep apnea): Code(s): G47.33 - Obstructive sleep apnea (adult) (pediatric) Status: Acute Assessment and Plan: In the baseline portion of the study, the patient had an overall AHI of 12.0 with desaturation down to 84%. This is consistent with mild sleep apnea. Due to the patient's hypertension, he qualifies for treatment. The patient was started on CPAP 5 cm H2O and titrated to CPAP 9 cm H2O due to hypopneas. I recommend that the patient be prescribed CPAP 7 cm H2O, size large Resmed AirFit [id number] nasal mask, CPAP filters/tubing and heated humidity. This should be used with all episodes of sleep.? Compliance should be reviewed within 31-90 days of starting therapy for usage greater than 4 hours per night greater than 70% of the nights. The patient should be asked about symptoms such as?excessive daytime sleepiness, quality of sleep, decreased nocturia, inc reased?mental functioning such as memory, mood, and concentration. Data The data obtained during this sleep study is adequate for interpretation. Certification This sleep study has been reviewed by a board certified sleep medicine physician.
[2024-12-25 15:03] VITALS: BMI 34.4
== END 2024-12-06 06:48 | disposition home or self-care (01) ==
LOC: ANHCSM 10:31
PROVIDERS: PCP Internal Medicine Infectious Disease; Visit Provider Physician Assistant
DX: G47.10 Hypersomnia, unspecified (principal); G47.33 Obstructive sleep apnea (adult) (pediatric)
CPT/HCPCS: 95811